=== PATIENT | female | born 1975 | race Hispanic/Latino ===

== ENCOUNTER 2025-02-15 17:27 | Emergency (ER) | payer OTHER ==
[~2025-02-15] VITALS: Ht 165.1 cm; Wt 65.8 kg
[2025-02-15 18:20] LABS: BASOPHILS % 0.4 % (0.0-1.0); EOSINOPHILS # (AUTO) 0.1 (0.0-0.4); EOSINOPHILS % 0.7 % (0.0-6.0); HEMATOCRIT 37.3 % (34.2-44.1); LYMPHOCYTES # (AUTO) 1.1 (1.0-3.2); MEAN CORPUSCULAR HEMOGLOBIN 30.3 pg (28-32); MEAN CORPUSCULAR HGB CONC 34.9 g/dL (31-35); MEAN CORPUSCULAR VOLUME 86.9 fL (81-99); MONOCYTES # (AUTO) 0.8 (0.2-0.8); MONOCYTES % 10.5 % (4.4-11.3); NEUTROPHILS # (AUTO) 5.1 (2.1-6.9); NEUTROPHILS % 71.8 % (38.7-80.0); PLATELET COUNT 164 x10e3/uL (140-360); RED BLOOD COUNT 4.29 x10e6/uL (3.6-5.1); WHITE BLOOD COUNT 7.13 x10e3/uL (4.8-10.8)
[2025-02-15 18:37] LABS: LIPASE 22 U/L (8-78); MAGNESIUM 1.9 MG/DL (1.3-2.1)
[2025-02-15 18:40] LABS: ALBUMIN 4.2 g/dL (3.5-5.0); ALBUMIN/GLOBULIN RATIO 1.1 (0.8-2.0); ANION GAP 13.6 mmol/L (8-16); BILIRUBIN,TOTAL 0.5 mg/dL (0.2-1.2); CALCIUM 9.1 mg/dL (8.4-10.2); CREATININE, SERUM 0.79 mg/dL (0.57-1.11); POTASSIUM 3.6 mmol/L (3.5-5.1); TOTAL PROTEIN 7.9 g/dL (6.5-8.1)
[2025-02-15 18:44] LABS: TROPONIN I < 0.001 ng/mL (0-0.300)
[2025-02-15] MEDS: KETOROLAC TROMETHAMINE 30 MG/ML VIAL IV STA (18:50)
[2025-02-15] MEDS ORDERED: AZITHROMYCIN250 MG PO (20:00)
[2025-02-15 20:23] VITALS: PULSE 89; RESP 18; TEMP 97.9; O2SAT 98
== END 2025-02-15 20:30 | disposition home or self-care (01) ==
LOC: EDSEX 17:27 → ER 18:10
DX: R07.2 Precordial pain (principal); R00.2 Palpitations; J01.90 Acute sinusitis, unspecified; E11.9 Type 2 diabetes mellitus without complications
CPT/HCPCS: 36415; 71045; 80053; 83690; 83735; 84484; 85025; 93005; 99284; J1885